=== PATIENT | female | born 1980 | race Caucasian/White ===

== ENCOUNTER 2016-05-13 19:18 | Emergency (ER) | payer OTHER ==
[~2016-05-13] VITALS: Ht 165.1 cm; Wt 115.7 kg
[2016-05-13 19:28] VITALS: BP 187/101; PULSE 110; RESP 18; TEMP 99.2; O2SAT 99
[2016-05-13] MEDS ORDERED: GLIM2TAB PO (19:44)
[2016-05-13] MEDS ORDERED: METF1000 PO (19:44)
--- NOTE | 2016-05-13 19:51 | PD ---
HPI Chief Complaint: Injury Time Seen by Provider: 19:45 Travel History International Travel<30 days: No Contact w/Intl Traveler<30days: No Traveled to known affect area: No History of Present Illness HPI 36 year old female presents to the ED for evaluation of right ankle pain. Onset 2 hours ago after losing her balance on the last stair. She endorses inversion of the right foot. No ambulation since the accident.. She denies numbness, tingling, weakness of the leg. She states attempted range of motion elicits pain. She endorsed previous injury to the ankle, spraining it a few years ago. No treatment at home. She denies chronic health problems. NKDA. PFSH Past Medical History Diabetes: Yes Patient Takes Glucophage: Yes Tetanus Vaccination: Unknown Influenza Vaccination: Yes ?: Not LMP: 04/24/16 Past Surgical History Tonsillectomy: Yes Social History Alcohol Use: No Tobacco Use: No Substance Use: No Allergies-Medications (Allergen,Severity, Reaction): Uncoded Allergies: YELLOW DYE #5 (Allergy, Severe, AGGITATION, 05/13/16) Reported Meds & Prescriptions Reported Meds & Active Scripts Active Lortab (Hydrocodone-Acetaminophen) 5-325 Mg Tab 1 Tab PO Q6H PRN Ibuprofen 800 Mg Tab 800 Mg PO Q8H Reported Glimepiride 2 Mg Tab 2 Mg PO BIDAC Metformin (Metformin HCl) 1,000 Mg Tab 1,000 Mg PO BIDPC With meals Review of Systems Except as stated in HPI: all other systems reviewed are Neg Physical Exam Narrative GENERAL: Well-nourished, well-developed pleasant white female in no acute distress. SKIN: Warm and dry. HEAD: Normocephalic. EYES: No scleral icterus. No injection or drainage. NECK: Supple, trachea midline. No JVD or lymphadenopathy. CARDIOVASCULAR: Regular rate and rhythm without murmurs, gallops, or rubs. RESPIRATORY: Breath sounds equal bilaterally. No accessory muscle use. GASTROINTESTINAL: Abdomen soft, non-tender, nondistended. MUSCULOSKELETAL: No cyanosis, or edema. FOCUSED RIGHT LOWER EXTREMITY EXAM: 2+ DP pulse. Squeeze test positive. Tender to palpation of the lateral malleolus. No medial malleolar tenderness. No specific tenderness. No navicular tenderness. Patient is able to wiggle the toes. Good flexion of the ankle elicits pain. Sensation intact to light touch distally. Cap refill less than 2 seconds. BACK: Nontender without obvious deformity. No CVA tenderness. Data Data Last Documented VS Vital Signs Date Time Temp Pulse Resp B/P Pulse Ox O2 Delivery O2 Flow Rate FiO2 05/13/16 19:28 99.2 110 18 187/101 99 Orders Ankle, Complete ([id number]) (05/13/16 19:46) Ice/Cold Pack (05/13/16 19:46) Ibuprofen (Motrin) (05/13/16 20:00) Splint Or Brace Apply/Monitor (05/13/16 20:31) Crutches (05/13/16 ) MDM Medical Decision Making Medical Screen Exam Complete: Yes Emergency Medical Condition: Yes Differential Diagnosis Ankle sprain versus tibial fracture versus fibular fracture versus other Narrative Course 36 year old female presents to the ED for evaluation of right ankle pain. Onset 2 hours ago after losing her balance on the last stair. She endorses inversion of the right foot. No ambulation since the accident.. She denies numbness, tingling, weakness of the leg. She states attempted range of motion elicits pain. She endorsed previous injury to the ankle, spraining it a few years ago. No treatment at home. Vitals reviewed. Physical exam reveals 2+ DP pulse. Squeeze test positive. Tender to palpation of the lateral malleolus. No medial malleolar tenderness. No specific tenderness. No navicular tenderness. Patient is able to wiggle the toes. Good flexion of the ankle elicits pain. Sensation intact to light touch distally. Cap refill less than 2 seconds. However the patient pain medication. She requested nonnarcotic pain medication and was administered 800 mg of ibuprofen. Ice pack was applied. X-rays reveal fractured right fibula per radiology review. Trimble splint was applied. Patient was provided with a pair crutches and educated on their use. She is prescribed 800 mg ibuprofen and 5 mg Lortab for pain greater than 6 on the pain scale. The patient states that she has her own orthopedist and will follow-up accordingly. The patient was instructed not to remove the splint until seen by the orthopedist. The patient was encouraged to take the medication every 6-8 hours as prescribed, follow up MALINA. She indicated understanding of the instructions and was amenable to plan of care. She is stable and discharged home. Diagnosis Primary Impression: Closed right fibular fracture Qualified Code: S82.831A - Other closed fracture of distal end of right fibula , initial encounter Referrals: Orthopedist Patient Instructions: Ankle Fracture (ED), General Instructions Additional Instructions: Rest, ice, elevate the extremity. Apply ice no longer than 10-15 minutes per hour a few times a day. 800 mg ibuprofen up to 3 times a day as needed for pain. 5 mg Lortab for pain rated 6 -10 on the pain scale. No weightbearing until cleared by the orthopedist. Follow-up with the orthopedist Monday as discussed. Return to the ED for any urgent or emergent medical condition. Med/Other Pt SpecificInfo: Prescription(s) given Scripts Hydrocodone-Acetaminophen (Lortab)5-325 Mg Tab1 Tab PO Q6H PRN (PAIN SCALE 6 TO 10) #15 TAB Ref 0 Prov:Jasmyn Ghotra MD 05/13/16 Ibuprofen 800 Mg Bpt570 Mg PO Q8H #21 TAB Ref 0 Prov:Jasmyn Ghotra MD 05/13/16 Disposition: DISCHARGE HOME Condition: Stable Lisa Castillo May 13, 2016 19:51
[2016-05-13] MEDS ORDERED: IBUPROFEN 800 MG TAB PO ONE (20:00)
--- NOTE | 2016-05-13 20:27 | RADHPO ---
EXAM DATE/TIME: 05/13/2016 19:54 [facility] COMPARISON: No previous studies available for comparison. INDICATIONS : Right lateral ankle pain post fall down stairs. MEDICAL HISTORY : None. SURGICAL HISTORY : None. ENCOUNTER: Initial ACUITY: 1 day PAIN SCORE: 10/10 LOCATION: Right lateral ankle FINDINGS: A nondisplaced oblique fracture is identified through the distal right fibula. The tibia and talus ar e intact. There is no significant dislocation. CONCLUSION: Fracture right fibula Bao Oliver MD on May 13, 2016 at 20:24 Board Certified Radiologist. This report was verified electronically.
[2016-05-13] MEDS ORDERED: IBUP800T23 PO (20:35)
[2016-05-13] MEDS ORDERED: HYDR-3533 PO (20:35)
[2016-05-13 20:55] VITALS: RESP 18
== END 2016-05-13 21:10 | disposition home or self-care (01) ==
LOC: PHEFT 19:18
DX: S82.831A Other fracture of upper and lower end of right fibula, initial encounter for closed fracture (principal); E11.9 Type 2 diabetes mellitus without complications; Z79.84 Long term (current) use of oral hypoglycemic drugs; X50.1XXA Overexertion from prolonged static or awkward postures, initial encounter; X58.XXXA Exposure to other specified factors, initial encounter
CPT/HCPCS: 29515; 73610; 99283; E0113

== ENCOUNTER → 2016-11-17 | Outpatient (CLI) | payer OTHER ==
[~2016-11-17] MED LIST: GLIM2TAB PO; HYDR-3533 PO; IBUP800T23 PO; METF1000 PO
[2016-11-17 12:52] LABS: ALT (GPT) 93 U/L (10-53); ANION GAP 8 MEQ/L (5-15); AST (GOT) 34 U/L (15-37); BICARBONATE 25.1 MEQ/L (21.0-32.0); BLOOD UREA NITROGEN 6 MG/DL (7-18); CHLORIDE 105 MEQ/L (98-107); GLOMERULAR FILTRATION RATE 80 ML/MIN (>89); GLUCOSE,FASTING 344 MG/DL (74-99); SODIUM (NA) 138 MEQ/L (136-145)
[2016-11-17 12:54] LABS: ALKALINE PHOSPHATASE 61 U/L (45-117); HDL CHOLESTEROL 29.2 MG/DL (40.0-60.0); TOTAL BILIRUBIN ADULT 0.3 MG/DL (0.2-1.0)
[2016-11-17 15:38] LABS: HEMOGLOBIN A1a 1.3 %; HEMOGLOBIN LA1C 3.5 %; HEMOGLOBIN P3 4.7 %
== END ==
LOC: OLAB 08:06
PROVIDERS: ATTEND Family Medicine
DX: E55.9 Vitamin D deficiency, unspecified (principal); I10 Essential (primary) hypertension; E11.65 Type 2 diabetes mellitus with hyperglycemia; E78.5 Hyperlipidemia, unspecified
CPT/HCPCS: 80053; 80061; 82043; 82306; 83036